=== PATIENT | female | born 1965 | race American Indian/Alaskan Native ===

== ENCOUNTER 2022-01-14 13:07 | Emergency (ER) | payer OTHER ==
[2022-01-14] MEDS ORDERED: SODIUM CHLORIDE 0.9% 1000 ML 1,000 ML IV ONE (15:06)
--- NOTE | 2022-01-14 15:15 | Emergency Department Report ---
HPI <KATHLEEN KENNEDY - Last Filed: 01/14/22 21:18> - HPI HPI: 56-year-old female no past medical history presents complaining of approximately 4 days of left upper quadrant pain and now with right upper quadrant abdominal pain, back pain, and nausea vomiting. The patient states that about 4 days ago she began to have a dull constant soreness in her left upper quadrant of her abdomen just under the rib cage. Last night she developed some low back pain. Today the pain was much worse and she developed intractable nausea and vomiting. She called 911 and was transported here by ambulance. She was given Toradol and Zofran in the ambulance which dramatically improved her symptoms. She only has dull ache in her right upper quadrant/flank and is not nauseated. There are no known aggravating or alleviating factors. She denies experiencing any chest pain, cough, shortness of breath, headache, fever, neck pain, dysuria, frequency, discharge, hematuria, vaginal bleeding, focal weakness, sensory changes, or any other complaints. <ROSA M JORGE - Last Filed: 01/17/22 06:20> - General Chief Complaint: Back Pain/Injury Time Seen by Provider: 01/14/22 13:58 ED Past Medical Hx <KATHLEEN KENNEDY - Last Filed: 01/14/22 21:18> - Past Medical History Previous Medical History?: No <ROSA M JORGE - Last Filed: 01/17/22 06:20> - Medications Home Medications: Home Medications Medication Instructions Recorded Confirmed Last Taken Type Ondansetron [Zofran Odt] 4 mg PO Q8HR PRN #14 tab.rapdis 01/14/22 Unknown Rx Tamsulosin [Flomax] 0.4 mg PO QDAY #7 cap 01/14/22 Unknown Rx traMADoL [Ultram 50 MG tab] 50 mg PO Q4HR PRN #14 tablet 01/14/22 Unknown Rx Cefpodoxime Proxetil 100 mg PO BID #20 01/16/22 Unknown Rx ED Review of Systems ROS: Stated complaint: BACK PAIN Other details as noted in HPI <KATHLEEN KENNEDY - Last Filed: 01/14/22 21:18> ROS: Stated complaint: BACK PAIN Other details as noted in HPI Comment: All other systems reviewed and negative Constitutional: denies: chills, fever Eyes: denies: eye pain, vision change ENT: denies: throat pain, congestion Respiratory: denies: cough, shortness of breath Cardiovascular: denies: chest pain, palpitations Gastrointestinal: abdominal pain, nausea, vomiting Genitourinary: denies: dysuria, frequency Musculoskeletal: back pain, other Skin: denies: rash, lesions Neurological: denies: headache, weakness, numbness Psychiatric: denies: anxiety, depression <ROSA M JORGE - Last Filed: 01/17/22 06:20> Physical Exam - Physical Exam Vital Signs: Vital Signs 01/14/22 01/14/22 01/14/22 13:16 13:28 13:30 Temperature 98.2 F 98.3 F Pulse Rate 68 78 Respiratory 16 14 Rate Blood Pressure Blood Pressure 130/78 127/82 [Right] O2 Sat by Pulse 99 98 98 Oximetry 01/14/22 01/14/22 01/14/22 13:31 13:45 14:01 Temperature Pulse Rate 77 58 L 81 Respiratory 11 L 17 16 Rate Blood Pressure 127/82 127/82 116/70 Blood Pressure [Right] O2 Sat by Pulse 98 97 98 Oximetry 01/14/22 01/14/22 01/14/22 14:15 14:31 14:45 Temperature Pulse Rate 75 63 64 Respiratory 21 15 19 Rate Blood Pressure 116/70 110/71 110/71 Blood Pressure [Right] O2 Sat by Pulse 98 98 97 Oximetry 01/14/22 01/14/22 01/14/22 15:01 15:39 15:45 Temperature Pulse Rate 75 71 67 Respiratory 21 17 15 Rate Blood Pressure 105/71 113/75 108/74 Blood Pressure [Right] O2 Sat by Pulse 99 98 98 Oximetry 01/14/22 01/14/22 01/14/22 16:01 16:15 16:31 Temperature Pulse Rate 75 80 77 Respiratory 12 12 15 Rate Blood Pressure 115/76 115/76 115/76 Blood Pressure [Right] O2 Sat by Pulse 98 98 98 Oximetry 01/14/22 01/14/22 01/14/22 16:45 17:01 17:15 Temperature Pulse Rate 77 73 66 Respiratory 19 14 15 Rate Blood Pressure 115/76 112/78 112/78 Blood Pressure [Right] O2 Sat by Pulse 97 99 97 Oximetry 01/14/22 01/14/22 01/14/22 17:31 17:45 18:01 Temperature Pulse Rate 63 63 66 Respiratory 19 19 20 Rate Blood Pressure 119/75 119/75 104/59 Blood Pressure [Right] O2 Sat by Pulse 97 97 97 Oximetry 01/14/22 01/14/22 01/14/22 18:15 18:31 18:45 Temperature Pulse Rate 80 81 77 Respiratory 23 21 15 Rate Blood Pressure 104/59 106/72 106/72 Blood Pressure [Right] O2 Sat by Pulse 97 98 99 Oximetry 01/14/22 20:05 Temperature 98.6 F Pulse Rate 75 Respiratory 15 Rate Blood Pressure Blood Pressure 110/69 [Right] O2 Sat by Pulse 98 Oximetry <KATHLEEN KENNEDY. - Last Filed: 01/14/22 21:18> - Physical Exam Vital Signs: Vital Signs 01/14/22 01/14/22 01/14/22 13:16 13:28 13:30 Temperature 98.2 F 98.3 F Pulse Rate 68 78 Respiratory 16 14 Rate Blood Pressure Blood Pressure 130/78 127/82 [Right] O2 Sat by Pulse 99 98 98 Oximetry 01/14/22 13:31 Temperature Pulse Rate 77 Respiratory 11 L Rate Blood Pressure 127/82 Blood Pressure [Right] O2 Sat by Pulse 98 Oximetry Physical Exam: GENERAL: Well developed and well nourished. No acute distress HEAD: Normocephalic. No obvious signs of trauma. ENT: Dry mucous membranes. EYES: Extraocular movements are intact. Pupils are equal round and reactive to light bilaterally NECK: Supple. Full ROM is intact. Trachea is midline. LUNGS: Nonlabored breathing. Equal chest rise bilaterally. Clear to auscultation bilaterally. CARDIOVASCULAR: Regular rate and rhythm. No murmurs or rubs. VASCULAR: Cap refill < 2 seconds. Trace edema bilaterally. ABDOMEN: Abdomen is soft and nondistended. There is minimal tenderness of the r ight upper quadrant without guarding or rebound. SKIN: Skin is warm and dry NEURO: Patient is awake, alert, and oriented. it help desk associate II-XII grossly intact. No focal deficits. Normal motor and sensory exam throughout. Normal speech. MUSCULOSKELETAL: No obvious deformities. No significant tenderness. Normal ROM throughout. BACK/SPINE: No midline tenderness or step-offs of the C/T/L spine. Right sided CVA tenderness noted. <ANIA,ROSA M - Last Filed: 01/17/22 06:20> ED Course Vital Signs 01/14/22 01/14/22 01/14/22 13:16 13:28 13:30 Temperature 98.2 F 98.3 F Pulse Rate 68 78 Respiratory 16 14 Rate Blood Pressure Blood Pressure 130/78 127/82 [Right] O2 Sat by Pulse 99 98 98 Oximetry 01/14/22 01/14/22 01/14/22 13:31 13:45 14:01 Temperature Pulse Rate 77 58 L 81 Respiratory 11 L 17 16 Rate Blood Pressure 127/82 127/82 116/70 Blood Pressure [Right] O2 Sat by Pulse 98 97 98 Oximetry 01/14/22 01/14/22 01/14/22 14:15 14:31 14:45 Temperature Pulse Rate 75 63 64 Respiratory 21 15 19 Rate Blood Pressure 116/70 110/71 110/71 Blood Pressure [Right] O2 Sat by Pulse 98 98 97 Oximetry 01/14/22 01/14/22 01/14/22 15:01 15:39 15:45 Temperature Pulse Rate 75 71 67 Respiratory 21 17 15 Rate Blood Pressure 105/71 113/75 108/74 Blood Pressure [Right] O2 Sat by Pulse 99 98 98 Oximetry 01/14/22 01/14/22 01/14/22 16:01 16:15 16:31 Temperature Pulse Rate 75 80 77 Respiratory 12 12 15 Rate Blood Pressure 115/76 115/76 115/76 Blood Pressure [Right] O2 Sat by Pulse 98 98 98 Oximetry 01/14/22 01/14/22 01/14/22 16:45 17:01 17:15 Temperature Pulse Rate 77 73 66 Respiratory 19 14 15 Rate Blood Pressure 115/76 112/78 112/78 Blood Pressure [Right] O2 Sat by Pulse 97 99 97 Oximetry 01/14/22 01/14/22 01/14/22 17:31 17:45 18:01 Temperature Pulse Rate 63 63 66 Respiratory 19 19 20 Rate Blood Pressure 119/75 119/75 104/59 Blood Pressure [Right] O2 Sat by Pulse 97 97 97 Oximetry 01/14/22 01/14/22 01/14/22 18:15 18:31 18:45 Temperature Pulse Rate 80 81 77 Respiratory 23 21 15 Rate Blood Pressure 104/59 106/72 106/72 Blood Pressure [Right] O2 Sat by Pulse 97 98 99 Oximetry 01/14/22 20:05 Temperature 98.6 F Pulse Rate 75 Respiratory 15 Rate Blood Pressure Blood Pressure 110/69 [Right] O2 Sat by Pulse 98 Oximetry <KATHLEEN KENNEDY - Last Filed: 01/14/22 21:18> Vital Signs 01/14/22 01/14/22 01/14/22 13:16 13:28 13:30 Temperature 98.2 F 98.3 F Pulse Rate 68 78 Respiratory 16 14 Rate Blood Pressure Blood Pressure 130/78 127/82 [Right] O2 Sat by Pulse 99 98 98 Oximetry 01/14/22 13:31 Temperature Pulse Rate 77 Respiratory 11 L Rate Blood Pressure 127/82 Blood Pressure [Right] O2 Sat by Pulse 98 Oximetry <ROSA M JORGE - Last Filed: 01/17/22 06:20> ED Medical Decision Making - Lab Data Result diagrams: 01/14/22 16:23 01/14/22 16:23 - Medical Decision Making Patient stated that she is feeling much better. Her pain is completely resolved. Patient informed about her CT abdomen and pelvis finding showing a 2 mm obstructing mid ureteral stone and expecting that the stone is most likely passed since patient is completely pain-free now I will start patient on Flomax and advised to follow-up with urologist in the next 2 to 3 days and to return to the ER if she develop any new symptoms. <KATHLEEN KENNEDY - Last Filed: 01/14/22 21:18> - Lab Data Result diagrams: 01/14/22 16:23 01/14/22 16:23 Lab Results 01/14/22 01/14/22 01/14/22 Range/Units 16:23 16:23 16:23 WBC 7.5 (4.5-11.0) K/mm3 RBC 4.41 (3.65-5.03) M/mm3 Hgb 12.9 (10.1-14.3) gm/dl Hct 38.2 (30.3-42.9) % MCV 87 (79-97) fl MCH 29 (28-32) pg MCHC 34 (30-34) % RDW 14.6 (13.2-15.2) % Plt Count 262 (140-440) K/mm3 Lymph % (Auto) 18.8 (13.4-35.0) % [place] % (Auto) 4.4 (0.0-7.3) % Eos % (Auto) 0.1 (0.0-4.3) % Baso % (Auto) 0.5 (0.0-1.8) % Lymph # (Auto) 1.4 (1.2-5.4) K/mm3 [place] # (Auto) 0.3 (0.0-0.8) K/mm3 Eos # (Auto) 0.0 (0.0-0.4) K/mm3 Baso # (Auto) 0.0 (0.0-0.1) K/mm3 Seg Neutrophils % 76.2 H (40.0-70.0) % Seg Neutrophils # 5.7 (1.8-7.7) K/mm3 PT 13.2 (12.2-14.9) Sec. INR 0.90 (0.87-1.13) APTT 33.3 (24.2-36.6) Sec. Sodium 139 (137-145) mmol/L Potassium 4.0 (3.6-5.0) mmol/L Chloride 105.6 (98-107) mmol/L Carbon Dioxide 19 L (22-30) mmol/L Anion Gap 18 mmol/L BUN 15 (7-17) mg/dL Creatinine 0.7 (0.6-1.2) mg/dL Estimated GFR > 60 ml/min BUN/Creatinine Ratio 21 % Glucose 89 (65-100) mg/dL Calcium 8.8 (8.4-10.2) mg/dL Magnesium 1.90 (1.7-2.3) mg/dL Total Bilirubin 0.60 (0.1-1.2) mg/dL Direct Bilirubin < 0.2 (0-0.2) mg/dL Indirect Bilirubin 0.4 mg/dL AST 18 (5-40) units/L ALT 8 (7-56) units/L Alkaline Phosphatase 56 (35-129) units/L Troponin T < 0.010 (0.00-0.029) ng/mL Total Protein 7.0 (6.3-8.2) g/dL Albumin 3.9 (3.9-5) g/dL Albumin/Globulin Ratio 1.3 % Lipase 34 (13-60) units/L Urine Color (Yellow) Urine Turbidity (Clear) Urine pH (5.0-7.0) Ur Specific [place] (1.003-1.030) Urine Protein (Negative) mg/dL Urine Glucose (UA) (Negative) mg/dL Urine Ketones (Negative) mg/dL Urine Blood (Negative) Urine Nitrite (Negative) Urine Bilirubin (Negative) Urine Urobilinogen (<2.0) mg/dL Ur Leukocyte Esterase (Negative) Urine WBC (Auto) (0.0-6.0) /HPF Urine RBC (Auto) (0.0-6.0) /HPF U Epithel Cells (Auto) (0-13.0) /HPF Urine Bacteria (Auto) (Negative) /HPF Urine Mucus /HPF 01/14/22 Range/Units Unknown WBC (4.5-11.0) K/mm3 RBC (3.65-5.03) M/mm3 Hgb (10.1-14.3) gm/dl Hct (30.3-42.9) % MCV (79-97) fl MCH (28-32) pg MCHC (30-34) % RDW (13.2-15.2) % Plt Count (140-440) K/mm3 Lymph % (Auto) (13.4-35.0) % [place]ock % (Auto) (0.0-7.3) % Eos % (Auto) (0.0-4.3) % Baso % (Auto) (0.0-1.8) % Lymph # (Auto) (1.2-5.4) K/mm3 [place] # (Auto) (0.0-0.8) K/mm3 Eos # (Auto) (0.0-0.4) K/mm3 Baso # (Auto) (0.0-0.1) K/mm3 Seg Neutrophils % (40.0-70.0) % Seg Neutrophils # (1.8-7.7) K/mm3 PT (12.2-14.9) Sec. INR (0.87-1.13) APTT (24.2-36.6) Sec. Sodium (137-145) mmol/L Potassium (3.6-5.0) mmol/L Chloride (98-107) mmol/L Carbon Dioxide (22-30) mmol/L Anion Gap mmol/L BUN (7-17) mg/dL Creatinine (0.6-1.2) mg/dL Estimated GFR ml/min BUN/Creatinine Ratio % Glucose (65-100) mg/dL Calcium (8.4-10.2) mg/dL Magnesium (1.7-2.3) mg/dL Total Bilirubin (0.1-1.2) mg/dL Direct Bilirubin (0-0.2) mg/dL Indirect Bilirubin mg/dL AST (5-40) units/L ALT (7-56) units/L Alkaline Phosphatase (35-129) units/L Troponin T (0.00-0.029) ng/mL Total Protein (6.3-8.2) g/dL Albumin (3.9-5) g/dL Albumin/Globulin Ratio % Lipase (13-60) units/L Urine Color Yellow (Yellow) Urine Turbidity Clear (Clear) Urine pH 6.0 (5.0-7.0) Ur Specific [place] 1.011 (1.003-1.030) Urine Protein 30 mg/dl (Negative) mg/dL Urine Glucose (UA) Neg (Negative) mg/dL Urine Ketones 20 (Negative) mg/dL Urine Blood Lg (Negative) Urine Nitrite Neg (Negative) Urine Bilirubin Neg (Negative) Urine Urobilinogen < 2.0 (<2.0) mg/dL Ur Leukocyte Esterase Neg (Negative) Urine WBC (Auto) 12.0 H (0.0-6.0) /HPF Urine RBC (Auto) 2.0 (0.0-6.0) /HPF U Epithel Cells (Auto) 3.0 (0-13.0) /HPF Urine Bacteria (Auto) 1+ (Negative) /HPF Urine Mucus Few /HPF - Radiology Data Radiology results: report reviewed - Medical Decision Making 56-year-old female with no known past medical history presenting with 4 days of left upper quadrant abdominal pain which is switch to back pain and right-sided abdominal pain with nausea and vomiting for the past day. She is afebrile and with normal vital signs. She was given Toradol and Zofran in route which dramatically improved her back/flank pain and nausea vomiting. On physical examination she has very dry mucous membranes. She has minimal tenderness to palpation of the right upper quadrant and right-sided CVA tenderness. We will obtain a full set of labs and cultures, EKG, chest x-ray, and CT of the abdomen pelvis to assess for evidence of kidney stone versus appendicitis versus colitis versus pyelonephritis versus pancreatitis versus other abnormality to explain the patient's presentation. Labs reveal no significant leukocytosis or anemia. Kidney function is normal and there are no significant electrolyte abnormalities. Troponin is negative. Chest x-ray is within normal limits. On repeat assessment, the patient remains symptomatically improved. Urinalysis is consistent with UTI. CT of the abdomen pelvis is still pending. I have given 1 dose of IV cefepime. CT of the abdomen pelvis shows an obstructing 2 mm mid ureteral stone with mild right-sided hydronephrosis. Given finding of infected obstructed kidney stone, case has been signed out to Dr. Rui Mccallum who will assume full care of the patient. I followed up with the patient and spoke to her over the telephone on 01/16/2022 at 8:05 PM. She reports that generally she feels better is taking the prescr ibed medications but still has right-sided pain. Upon reviewing the patient's chart I see that she was discharged without any antibiotics. She says that she was prescribed nitrofurantoin by a doctor she works with today but has not yet taken the prescription. I advised the patient come in to continuous pickling line pickler a new prescription to take instead of the nitrofurantoin and she says she will come in at 10 PM to continuous pickling line pickler a prescription for Cefpodoxime 100 mg twice daily x10 days. I also highlighted the importance of following up with urologist within the next 1 to 2 days and again made sure that she had the contact information for Dr. Arevalo of urology. Patient expressed understanding and agreement. Patient came in picked up the prescription successfully. <ROSA M JORGE - Last Filed: 01/17/22 06:20> Critical care attestation.: If time is entered above; I have spent that time in minutes in the direct care of this critically ill patient, excluding procedure time. <KATHLEEN KENNEDY - Last Filed: 01/14/22 21:18> Critical care attestation.: If time is entered above; I have spent that time in minutes in the direct care of this critically ill patient, excluding procedure time. <ROSA M JORGE - Last Filed: 02/22/22 06:20> ED Disposition Is pt being admited?: No <KATHLEEN KENNEDY - Last Filed: 01/14/22 21:18> Is pt being admited?: No <ROSA M JORGE - Last Filed: 01/17/22 06:20> Clinical Impression: Acute abdominal pain, Ureteric colic, Kidney stone, UTI (urinary tract infection) Disposition: 01 HOME / SELF CARE / HOMELESS Condition: Stable Instructions: Kidney Stones, Renal Colic Prescriptions: Cefpodoxime Proxetil 100 mg PO BID #20 Tamsulosin [Flomax] 0.4 mg PO QDAY #7 cap traMADoL [Ultram 50 MG tab] 50 mg PO Q4HR PRN #14 tablet PRN Reason: Pain Ondansetron [Zofran Odt] 4 mg PO Q8HR PRN #14 tab.rapdis PRN Reason: Nausea And Vomiting Referrals: PREET AREVALO MD [Staff Physician] - 3-5 Days PRIMARY CARE, [Primary Care Provider] - 3-5 Days
--- NOTE | 2022-01-14 15:46 | XRay Report ---
CHEST 1 VIEW 01/14/2022 3:21 PM INDICATION / CLINICAL INFORMATION: chest pain. COMPARISON: None available. FINDINGS: SUPPORT DEVICES: None. HEART / MEDIASTINUM: No significant abnormality. LUNGS / PLEURA: No significant pulmonary or pleural abnormality. No pneumothorax. ADDITIONAL FINDINGS: No significant additional findings. IMPRESSION: No acute abnormality. Signer Name: Yassine Villatoro MD Signed: 01/14/2022 3:42 PM Workstation Name: [id number]
[2022-01-14 15:55] LABS: Bacteria,Urine 1+ /HPF (Negative); Bilirubin,Urine NEG (Negative); Blood,Urine LG (Negative); Color,Urine Yellow (Yellow); Mucus,Urine FEW /HPF; Urobilinogen,Urine < 2.0 mg/dL (<2.0)
[2022-01-14] MEDS ORDERED: CEFEPIME/NS 2 GM/100 ML 2 GM/100 ML BAG IV ONE (17:20)
[2022-01-14 18:24] LABS: Basophils % (Auto) 0.5 % (0.0-1.8); Eosinophils % (Auto) 0.1 % (0.0-4.3); Hematocrit 38.2 % (30.3-42.9); Hemoglobin 12.9 gm/dl (10.1-14.3); Lymphocytes # (Auto) 1.4 K/mm3 (1.2-5.4); Lymphocytes % (Auto) 18.8 % (13.4-35.0); Mean Corpuscular HGB Conc 34 % (30-34); Mean Corpuscular Volume 87 fl (79-97); Monocytes # (Auto) 0.3 K/mm3 (0.0-0.8); Monocytes % (Auto) 4.4 % (0.0-7.3); Platelet Count 262 K/mm3 (140-440); Red Blood Count 4.41 M/mm3 (3.65-5.03); Red Cell Distribution Width 14.6 % (13.2-15.2)
[2022-01-14 18:33] LABS: INR 0.9 (0.87-1.13)
[2022-01-14 18:34] LABS: Partial Thromboplastin Time 33.3 Sec. (24.2-36.6)
[2022-01-14 18:36] LABS: Alanine Aminotransferase 8 units/L (7-56); Albumin 3.9 g/dL (3.9-5); Blood Urea Nitrogen 15 mg/dL (7-17); Calcium 8.8 mg/dL (8.4-10.2); Hemolysis Index 4
[2022-01-14 18:43] LABS: BUN/Creatinine Ratio 21; Bilirubin,Direct < 0.2 mg/dL (0-0.2)
--- NOTE | 2022-01-14 19:40 | Cat Scan Report ---
CT ABDOMEN AND PELVIS WITH CONTRAST INDICATION: RUQ pain, R CVA tend. TECHNIQUE: Axial CT images were obtained through the abdomen and pelvis after 100 cc Omni [address]. [address] scans at this location are performed using CT dose reduction for ALARA by means of automated expos ure control. COMPARISON: None available. FINDINGS: LOWER CHEST: 7 mm right middle lobe perifissural solid pulmonary nodule image 10 LIVER: No significant abnormality. GALLBLADDER: No significant abnormality. BILE DUCTS: No significant abnormality. PANCREAS: No significant abnormality. SPLEEN: No significant abnormality. ADRENALS: No significant abnormality. RIGHT KIDNEY and URETER: 4 nonobstructing 2 mm right intrarenal stones. Obstructing 2 mm right mid ur eteral stone image 105 at L4 vertebral body level with mild right hydronephrosis and LEFT KIDNEY and URETER: Tiny punctate 1 to 2 mm single nonobstructing left intrarenal stone. Tiny sub centimeter left renal cyst. STOMACH and SMALL BOWEL: No significant abnormality. COLON: No significant abnormality. APPENDIX: Normal PERITONEUM: No free fluid. No free air. No fluid collection. LYMPH NODES: No significant adenopathy. AORTA and ARTERIES: No significant abnormality. IVC and VEINS: No significant abnormality. URINARY BLADDER: No significant abnormality. REPRODUCTIVE ORGANS: No significant abnormality. ADDITIONAL FINDINGS: None. SKELETAL SYSTEM: No significant abnormality. IMPRESSION: 1. Obstructing 2 mm right ureteral stone with mild right hydronephrosis. 2. Bilateral nephrolithiasis. Signer Name: Michael Hopkins MD Signed: 01/14/2022 7:36 PM Workstation Name: [id number]
[2022-01-14 20:05] VITALS: BP 110/69
--- NOTE | 2022-01-18 17:15 | Electrocardiograph Report ---
[facility] [place] Test Date: 2022-01-14 Test Time: 21:47:59 Pat Name: JANEE ARAUJO Department: Room: Gender: F Manager Quality: ER : 1965 Requested By: ROSA M JORGE Order Number: [id number] Reading MD: Trang Enamorado Measurements Intervals [place] Rate: 67 P: 70 SD: 173 QRS: 7 QRSD: 80 T: 2 QT: 408 QTc: 431 Interpretive Statements Sinus rhythm No previous ECG available for comparison Electronically Signed On 01-18-2022 17:15:07 EST by Trang Enamorado
== END 2022-01-15 00:20 | disposition home or self-care (01) ==
LOC: ED 13:07
DX: N23 Unspecified renal colic (principal); N39.0 Urinary tract infection, site not specified
CPT/HCPCS: 36415; 71045; 74177; 80048; 80076; 81001; 83690; 83735; 84484; 85025; 85610; 85730; 87040; 87086; 93005; 93010; 96361; 96365; 99285; J0692; J7030; Q9967; Q0162